=== PATIENT | male | born 1965 | race Caucasian/White ===

== ENCOUNTER 2017-07-02 17:03 | Emergency (ER) | payer OTHER ==
[~2017-07-02] VITALS: Ht 180.3 cm; Wt 104.3 kg
[2017-07-02 17:03] VITALS: BP_SYST 134
--- NOTE | 2017-07-02 17:03 | NUR ---
BROUGHT BACK TO BED #6 AND TRIAGED. REPORT GIVEN TO LUIS A
--- NOTE | 2017-07-02 17:05 | NUR ---
PT STATES THAT TODAY HE HAD WRIST FUSION SURGERY AND HE RECEIVED A PRESCRIPTION FOR [place], PT STATES THAT HE IS UNABLE TO FILL SCRIPT DUE TO WRONG PAPER. PT JUST HAD SURGERY TODAY IN [place], PT CALLED THE SURGEON AND TOLD TO GO TO ER OR URGENT CARE FOR CORRECT SCRIPT.
--- NOTE | 2017-07-02 17:14 | NUR ---
BUDDY Booth at bedside examining patient.
[2017-07-02] MEDS: ONDANSETRON 4 MG ODT TAB PO ONE (17:21)
[2017-07-02] MEDS: HYDROcodone/ACETAMIN 7.5-325 MG TAB PO ONE (17:22)
[2017-07-02 17:37] VITALS: BP_SYST 134
--- NOTE | 2017-07-02 17:37 | NUR ---
Patient given written and verbal discharge instructions and verbalizes understanding. ER MD discussed with patient the results and treatment provided. Patient in stable condition. ID arm band removed. Rx of [place] given. Patient educated on pain management and to follow up with PMD in 2-3 days. Pain Scale 0/10 Opportunity for questions provided and answered.
== END 2017-07-02 17:37 | disposition home or self-care (01) ==
LOC: SED 17:03
DX: Z76.0 Encounter for issue of repeat prescription (principal); G89.18 Other acute postprocedural pain; R03.0 Elevated blood-pressure reading, without diagnosis of hypertension; J45.909 Unspecified asthma, uncomplicated; Z88.6 Allergy status to analgesic agent; Z88.8 Allergy status to other drugs, medicaments and biological substances; Z98.890 Other specified postprocedural states
CPT/HCPCS: 99283; Q0162